=== PATIENT | female | born 1985 | race Caucasian/White ===

== ENCOUNTER 2019-12-15 20:16 | Emergency (ER) | payer MEDICAID ==
[~2019-12-15] VITALS: Ht 162.6 cm; Wt 81.8 kg
[2019-12-15 20:59] LABS: URINE HCG NEGATIVE (NEG)
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
[2019-12-15 21:08] LABS: CLARITY,URINE SLIGHTLY CLOUDY (Clear); COLOR,URINE YELLOW (Yellow)
[2019-12-15 21:09] LABS: GLUCOSE, URINE NEGATIVE (Neg); KETONES,URINE NEGATIVE (Neg); LEUKOCYTE ESTERASE ,URINE NEGATIVE (Neg); NITRITES, URINE NEGATIVE (Neg); OCCULT BLOOD,URINE SMALL (Neg); PH,URINE 5.5 (4.8-8.0); PROTEIN,URINE NEGATIVE (Neg); UA COLLECTION TYPE CLN CATCH MIDSTREAM; UROBILINOGEN,URINE 0.2 E.U/dL (0.2-1.0)
[2019-12-15 21:10] LABS: BASOPHILS # (AUTO) 0.1 X10'3 (0-0.2); EOSINOPHILS # (AUTO) 0.1 X10'3 (0-0.9); EOSINOPHILS % (AUTO) 2.1 % (0-6); HEMATOCRIT 41.8 % (35.0-45.0); HEMOGLOBIN 14.4 g/dl (12.0-16.0); LYMPHOCYTES # (AUTO) 1.6 X10'3 (1.1-4.8); LYMPHOCYTES % (AUTO) 22.7 % (21-51); MEAN CORPUSCULAR HEMOGLOBIN 33.5 PG (27.0-31.0); MEAN CORPUSCULAR HGB CONC 34.4 g/dL (33.0-36.5); MEAN CORPUSCULAR VOLUME 97.3 FL (78-98); MEAN PLATELET VOLUME 7.6 FL (7.4-10.4); MONOCYTES # (AUTO) 0.6 X10'3 (0-0.9); MONOCYTES % (AUTO) 8.9 % (2-12); NEUTROPHILS # (AUTO) 4.5 X10'3 (1.8-7.7); NEUTROPHILS % (AUTO) 64.3 % (42-75); PLATELET COUNT 247 X10'3 (140-440); RED CELL DISTRIBUTION WIDTH 14.1 % (11.5-14.5)
[2019-12-15 21:11] LABS: MUCUS STRANDS MANY /LPF (Neg); SQUAMOUS EPITHELIAL CELL,UR MANY /LPF (FEW); URINE AMPHETAMINE SCREEN NEGATIVE (Neg); URINE BARBITUATE SCREEN NEGATIVE (Neg); URINE BENZODIAZEPINES SCREEN NEGATIVE (Neg); URINE CANNABINOID SCREEN POSITIVE (Neg); URINE COCAINE SCREEN NEGATIVE (Neg); URINE METHADONE SCREEN NEGATIVE (Neg); URINE OPIATE SCREEN NEGATIVE (Neg); URINE PHENCYCLIDINE SCREEN NEGATIVE (Neg)
[2019-12-15 21:13] LABS: BACTERIA,URINE 1+ /HPF (Neg); RBC,URINE 0-2 /HPF (0-2)
[2019-12-15 21:17] LABS: ALANINE AMINOTRANSFERASE 54 U/L (12-78); ALBUMIN 3.8 G/DL (3.4-5.0); ALBUMIN/GLOBULIN RATIO 1.1 (1.1-1.5); ALKALINE PHOSPHATASE 58 IU/L (46-116); ANION GAP 9 (8-16); ASPARTATE AMINO TRANSFERASE 29 U/L (10-37); BILIRUBIN,TOTAL 0.6 MG/DL (0.1-1.0); BLOOD UREA NITROGEN 11 MG/DL (7-18); BUN/CREATININE RATIO 13.1 (6.6-38.0); CHLORIDE 106 MMOL/L (99-107); CREATININE 0.84 MG/DL (0.40-0.90); ETHANOL < 0.010 GM/DL (0.0-0.010); GLUCOSE 115 MG/DL (70-104); POTASSIUM 3.5 MMOL/L (3.5-5.1); SODIUM 139 MMOL/L (135-145); TOTAL CARBON DIOXIDE 24.1 MMOL/L (24-32); TOTAL PROTEIN 7.3 G/DL (6.4-8.2); eGFR 77 ML/MIN
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
[2019-12-15] MEDS ORDERED: diphenhydrAMINE 25mg capsule PO ONE (21:55)
[2019-12-15] MEDS ORDERED: LORazepam 1 MG tablet PO ONE (21:55)
[2019-12-15] MEDS ORDERED: OLANZapine 5mg rapidly disint. tablet PO ONE (21:55)
--- NOTE | 2019-12-16 00:57 | NUR ---
Pt. resting quietly, no signs or symptoms of distress. Respirations even and unlabored.
--- NOTE | 2019-12-16 09:13 | NUR ---
Breaking Primary RN, pt appears to be sleeping, regular breathing present
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
--- NOTE | 2019-12-16 20:32 | NUR ---
Patilent is sleeping quietly on her left side.
--- NOTE | 2019-12-16 21:15 | NUR ---
Patient has repositioned herself onto her right side and is sleeping.
--- NOTE | 2019-12-16 22:51 | NUR ---
Patient is sleeping quietly on her right side.
--- NOTE | 2019-12-17 04:48 | NUR ---
Patient sleeping quietly on her left side.
--- NOTE | 2019-12-17 06:30 | NUR ---
Assumed care of patient. Pt. sleeping comfortable, respirations even and unlabored.
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
--- NOTE | 2019-12-17 10:16 | NUR ---
Pt. up to the restroom, gait steady. No signs of distress. Returns to bed and goes to sleep.
--- NOTE | 2019-12-17 12:06 | NUR ---
Pt. sleeping on right side, no distress noted.Respirations even and unlabored.
--- NOTE | 2019-12-17 14:10 | NUR ---
Patient is resting comfortably on right side. Pt. has been up to the bathroom several times. Pt. does not engage in conversation and when asked questions is abrupt and yells out "Ya I am fine!" Pt. consumed 80% of her lunch.
--- NOTE | 2019-12-17 16:06 | NUR ---
Pt. in bed, appears she is sleeping. No distress noted.
--- NOTE | 2019-12-17 17:03 | NUR ---
Patient up to bathroom then back to bed, no distress noted.
--- NOTE | 2019-12-17 17:14 | NUR ---
Riley pt. yell out "when am I going home?!" This RN went to talk with her and she was lying in bed with sheet pulled up over her head "I don't want to talk to you!"
--- NOTE | 2019-12-17 18:45 | NUR ---
One to one with the patient who is disorganized and paranoid. She gave a disjointed account of being from [place] "and I was on conservatorship. This nabor took me off of conservatorship and now he is in senior care" Spoke with [facility] and they report her medical is out of [facility] and they are aware that she is here on a 5150 hold.
[2019-12-17] MEDS: olanzapine 10mg tablet PO SCH (19:03)
--- NOTE | 2019-12-17 20:47 | NUR ---
The patient accepted PO medications and appears to be sleeping at this time.
--- NOTE | 2019-12-17 21:32 | NUR ---
The patient appears to be sleeping
--- NOTE | 2019-12-17 23:03 | NUR ---
The patient appears to be sleeping
--- NOTE | 2019-12-17 23:19 | NUR ---
Note annika in ED - 12/17/19 at 2320 by [email or web address] Pt has been sleeping since moving to [facility]. pt was awoken to take her hs meds. pt was slightly irritable and stated that "she's been waiting for 6 hours for ativan." pt then fell back asleep.
--- NOTE | 2019-12-18 00:58 | NUR ---
The patient appears to be sleeping
--- NOTE | 2019-12-18 02:44 | NUR ---
The patient appears to be sleeping
--- NOTE | 2019-12-18 04:16 | NUR ---
The patient appears to be sleeping
[2019-12-18 05:47] VITALS: BP 111/62
--- NOTE | 2019-12-18 06:30 | NUR ---
Assumed pt care. Pt appears to be sleeping with no s/s of distress noted.
--- NOTE | 2019-12-18 08:30 | NUR ---
Pt appears to be sleeping again after eating all of her breakfast
[2019-12-18] MEDS: olanzapine 10mg tablet PO SCH (10:44)
--- NOTE | 2019-12-18 11:10 | NUR ---
The patient has been accepted to [facility] by Dr Killian. She will be picked up at 1300 to take her there.
== END 2019-12-18 13:16 ==
LOC: ER 20:18
DX: F28 Other psychotic disorder not due to a substance or known physiological condition (principal); F31.9 Bipolar disorder, unspecified; F17.200 Nicotine dependence, unspecified, uncomplicated; F12.90 Cannabis use, unspecified, uncomplicated; Z86.69 Personal history of other diseases of the nervous system and sense organs; Z72.89 Other problems related to lifestyle
CPT/HCPCS: 36415; 80053; 80178; 80305; 80320; 81001; 81025; 85025; 99285; Q0163

== ENCOUNTER 2024-08-22 12:23 | Emergency (ER) | payer MEDICAID ==
[2024-08-22 12:35] VITALS: TEMP 98.2
[2024-08-22 13:32] LABS: BASOPHILS % (AUTO) 0.2 % (0-1); EOSINOPHILS # (AUTO) 0.1 X10'3 (0-0.9); EOSINOPHILS % (AUTO) 1.2 % (0-6); LYMPHOCYTES % (AUTO) 10.2 % (21-51); MEAN CORPUSCULAR HEMOGLOBIN 32.4 PG (27.0-31.0); MEAN CORPUSCULAR HGB CONC 34.3 g/dL (33.0-36.5); MEAN CORPUSCULAR VOLUME 94.5 FL (78-98); MEAN PLATELET VOLUME 6.8 FL (7.4-10.4); MONOCYTES # (AUTO) 0.6 X10'3 (0-0.9); MONOCYTES % (AUTO) 6.2 % (2-12); NEUTROPHILS % (AUTO) 82.2 % (42-75); PLATELET COUNT 235 X10'3 (140-440); RED BLOOD COUNT 4.02 X10'6 (4.20-5.60); RED CELL DISTRIBUTION WIDTH 13.3 % (11.5-14.5); WHITE BLOOD COUNT 9.7 X10'3 (4.5-11.0)
[2024-08-22 13:36] LABS: ALBUMIN 3.7 G/DL (3.4-5.0); ANION GAP 7 (8-16); BLOOD UREA NITROGEN 10 MG/DL (7-18); CALCIUM 8.9 MG/DL (8.5-10.1); CHLORIDE 106 MMOL/L (99-107); CREATININE 0.77 MG/DL (0.40-0.90); GLUCOSE 97 MG/DL (70-104); POTASSIUM 3.7 MMOL/L (3.5-5.1); SODIUM 140 MMOL/L (135-145); TOTAL CARBON DIOXIDE 27.5 MMOL/L (24-32); eGFR 83 ML/MIN
[2024-08-22 16:16] VITALS: BP 127/84; PULSE 74; RESP 19; O2SAT 97
== END 2024-08-22 18:08 ==
LOC: ER 12:23
DX: R25.3 Fasciculation (principal); F25.9 Schizoaffective disorder, unspecified; F31.9 Bipolar disorder, unspecified; F12.90 Cannabis use, unspecified, uncomplicated
CPT/HCPCS: 36415; 70450; 80048; 80178; 85025; 99284

== ENCOUNTER 2024-08-31 14:20 | Emergency (ER) | payer MEDICAID ==
[~2024-08-31] VITALS: Ht 162.6 cm; Wt 90.9 kg
[2024-08-31 14:44] LABS: BASOPHILS % (AUTO) 0.5 % (0-1); EOSINOPHILS # (AUTO) 0.2 X10'3 (0-0.9); EOSINOPHILS % (AUTO) 2.7 % (0-6); HEMATOCRIT 35.1 % (35.0-45.0); HEMOGLOBIN 11.9 g/dl (12.0-16.0); LYMPHOCYTES # (AUTO) 1.5 X10'3 (1.1-4.8); LYMPHOCYTES % (AUTO) 20.2 % (21-51); MEAN CORPUSCULAR HGB CONC 33.9 g/dL (33.0-36.5); MEAN CORPUSCULAR VOLUME 94.4 FL (78-98); MEAN PLATELET VOLUME 6.5 FL (7.4-10.4); MONOCYTES # (AUTO) 0.6 X10'3 (0-0.9); MONOCYTES % (AUTO) 7.7 % (2-12); NEUTROPHILS # (AUTO) 5.1 X10'3 (1.8-7.7); NEUTROPHILS % (AUTO) 68.9 % (42-75); PLATELET COUNT 232 X10'3 (140-440); RED BLOOD COUNT 3.71 X10'6 (4.20-5.60); RED CELL DISTRIBUTION WIDTH 13.9 % (11.5-14.5); WHITE BLOOD COUNT 7.4 X10'3 (4.5-11.0)
[2024-08-31 15:11] LABS: ALBUMIN 3.5 G/DL (3.4-5.0); ANION GAP 5 (8-16); BLOOD UREA NITROGEN 11 MG/DL (7-18); BUN/CREATININE RATIO 14.5 (10.0-20.0); CALCIUM 8.9 MG/DL (8.5-10.1); CHLORIDE 104 MMOL/L (99-107); CREATININE 0.76 MG/DL (0.40-0.90); GLUCOSE 80 MG/DL (70-104); POTASSIUM 3.7 MMOL/L (3.5-5.1); SODIUM 139 MMOL/L (135-145); THYROID STIMULATING HORMONE 1.97 ulU/ml (0.34-4.50); eCRCL 86 ML/MIN; eGFR 85 ML/MIN
[2024-08-31 15:19] LABS: ETHANOL < 10 MG/DL (<10)
[2024-08-31 16:16] LABS: URINE HCG NEGATIVE (NEG)
[2024-08-31 16:23] LABS: URINE AMPHETAMINE SCREEN NEGATIVE (Neg); URINE BARBITUATE SCREEN NEGATIVE (Neg); URINE BENZODIAZEPINES SCREEN NEGATIVE (Neg); URINE CANNABINOID SCREEN NEGATIVE (Neg); URINE COCAINE SCREEN NEGATIVE (Neg); URINE METHADONE SCREEN NEGATIVE (Neg); URINE OPIATE SCREEN NEGATIVE (Neg); URINE PHENCYCLIDINE SCREEN NEGATIVE (Neg)
[2024-08-31 16:48] LABS: BILIRUBIN,URINE NEGATIVE (Neg); CLARITY,URINE CLEAR (Clear); COLOR,URINE YELLOW (Yellow); GLUCOSE, URINE NEGATIVE (Neg); KETONES,URINE NEGATIVE (Neg); LEUKOCYTE ESTERASE ,URINE NEGATIVE (Neg); NITRITES, URINE NEGATIVE (Neg); OCCULT BLOOD,URINE NEGATIVE (Neg); PROTEIN,URINE NEGATIVE (Neg); UROBILINOGEN,URINE 0.2 E.U/dL (0.2-1.0)
[2024-08-31 16:51] LABS: UA COLLECTION TYPE NON-SPECIFIED
[2024-08-31 17:55] VITALS: BP 128/78; PULSE 90; RESP 16; TEMP 97.3; O2SAT 98
== END 2024-08-31 18:00 ==
LOC: ER 14:20
DX: F23 Brief psychotic disorder (principal); F12.90 Cannabis use, unspecified, uncomplicated; F17.200 Nicotine dependence, unspecified, uncomplicated
CPT/HCPCS: 36415; 80048; 80305; 80320; 81003; 81025; 84443; 85025; 99285